=== PATIENT | female | born 1950 | race Caucasian/White ===

== ENCOUNTER 2016-07-07 08:15 | Outpatient (CLI) | payer OTHER | END 2016-07-07 08:16 | disposition home or self-care (01) | DX: E03.9 Hypothyroidism, unspecified (principal) ==

== ENCOUNTER 2016-11-06 11:08 | Outpatient (CLI) | payer OTHER ==
[2016-11-06 13:32] LABS: THYROID STIMULATING HORMONE 1.1 uIU/mL (0.34-5.60)
== END 2016-11-06 11:09 | disposition home or self-care (01) ==
LOC: LAB 11:08
PROVIDERS: ATTEND Nurse Practitioner Family
DX: E03.2 Hypothyroidism due to medicaments and other exogenous substances (principal); R53.83 Other fatigue; E55.9 Vitamin D deficiency, unspecified
CPT/HCPCS: 36415; 82306; 84436; 84439; 84443; 84481; 86376; 86800

== ENCOUNTER 2016-11-29 11:15 | Outpatient (CLI) | payer OTHER ==
--- NOTE | 2016-11-29 15:57 | Ultrasound Report ---
EXAM: THYROID ULTRASOUND EXAM DATE: 11/29/2016 12:18 PM. CLINICAL HISTORY: INTERMITTENT PRESSURE IN THROAT AND SORE THROAT. COMPARISON: None. TECHNIQUE: Real time sonographic imaging of the thyroid was performed by the switchboard and control room operator. Multiple re presentative static images were saved for review. FINDINGS: THYROID GLAND: Right Lobe: 4.6 x 1.3 x 1.0 cm, volume 3 cc. Normal background echotexture. Right Lobe Nodules: None. Left Lobe: 4.3 x 1.4 x 1.1 cm, volume 3 cc. Normal background echotexture. Left Lobe Nodules: None. Isthmus: 0.2 cm AP. Isthmic Nodules: None. LYMPH NODES: No adenopathy demonstrated in the central or lateral compartment. OTHER: None. IMPRESSION: Normal thyroid ultrasound. Management recommendations are based on 2015 [place] [employer] Management Guidelines for A dult Patients with Thyroid Nodules and Differentiated Thyroid Cancer. [facility] Referring Provider Line: [phone] SITE ID: [id number]
== END 2016-11-29 11:16 | disposition home or self-care (01) ==
LOC: DI 11:15
PROVIDERS: ATTEND Nurse Practitioner Family
DX: R09.89 Other specified symptoms and signs involving the circulatory and respiratory systems (principal); R07.0 Pain in throat
CPT/HCPCS: 76536

== ENCOUNTER 2017-07-17 09:10 | Outpatient (CLI) | payer MEDICARE, OTHER ==
[2017-07-17 13:25] LABS: BASOPHILS # (AUTO) 0.1 10^3/uL (0.0-0.1); EOSINOPHILS # (AUTO) 0.2 10^3/uL (0.0-0.7); EOSINOPHILS % (AUTO) 2.9 %; HGB - HEMOGLOBIN 13.7 g/dL (12.0-16.0); LYMPHOCYTES # (AUTO) 2.1 10^3/uL (1.5-3.5); MEAN CORPUSCULAR HEMOGLOBIN 30.9 pg (27.0-31.0); MEAN CORPUSCULAR HGB CONC 33.2 g/dL (32.0-36.0); MEAN PLATELET VOLUME 9.1 fL (7.9-10.8); MONOCYTES # (AUTO) 0.4 10^3/uL (0.0-1.0); MONOCYTES % (AUTO) 7.8 %; NEUTROPHILS % (AUTO) 52.3 %; PLT - PLATELET COUNT 254 10^3/uL (130-450); RED BLOOD COUNT 4.44 10^6/uL (4.20-5.40); RED CELL DISTRIBUTION WIDTH 13.7 % (12.0-15.0); WHITE BLOOD COUNT 5.8 x10^3/uL (4.8-10.8)
[2017-07-17 13:48] LABS: ALBUMIN 4.1 g/dL (3.2-5.5); ALBUMIN/GLOBULIN RATIO 1.4 (1.0-2.2); ALKALINE PHOSPHATASE 90 IU/L (42-121); ALT ALANINE AMINOTRANSFERASE 34 IU/L (10-60); AST ASPARTATE AMINOTRANSFERASE 30 IU/L (10-42); BILIRUBIN,TOTAL 0.4 mg/dL (0.2-1.0); BUN - BLOOD UREA NITROGEN 18 mg/dL (6-20); CALCIUM 9.2 mg/dL (8.5-10.3); CARBON DIOXIDE - CO2 27 mmol/L (21-32); CHLORIDE 104 mmol/L (101-111); CHOL/HDL RATIO 3.7 (<4.4); CHOLESTEROL 194 mg/dL; CREATININE 0.6 mg/dL (0.4-1.0); GFR - MDRD 100 (>89); GLUCOSE 85 mg/dL (70-100); HDL CHOLESTEROL 52 mg/dL; LDL CHOLESTEROL,CALCULATED 118 mg/dL; LDL/HDL RATIO 2.3 (<4.4); SODIUM 138 mmol/L (135-145); TOTAL PROTEIN 7.1 g/dL (6.7-8.2); VLDL CHOLESTEROL 24 mg/dL
== END 2017-07-17 09:11 | disposition home or self-care (01) ==
LOC: LAB.R 09:10
PROVIDERS: ATTEND Nurse Practitioner Primary Care
DX: Z13.1 Encounter for screening for diabetes mellitus (principal); E78.5 Hyperlipidemia, unspecified; E03.9 Hypothyroidism, unspecified; Z79.899 Other long term (current) drug therapy
CPT/HCPCS: 80053; 80061; 83721; 84443; 85025

== ENCOUNTER 2017-08-13 13:12 | Outpatient (CLI) | payer MEDICARE, OTHER ==
--- NOTE | 2017-08-18 11:06 | Mammography Report ---
DIGITAL SCREENING MAMMOGRAM: 08/13/2017 CLINICAL INDICATION: A 67-year-old with history of late childbearing for screening. COMPARISON: 09/2015, 09/2014, 08/2013, 08/2012, 08/2011, 08/2010, 08/2009. TECHNIQUE: Routine CC and MLO projections as well as bilateral laterally exaggerated craniocaudal views were obtained of the breasts. FINDINGS: The breasts again demonstrate heterogeneously dense fibroglandular parenchyma bilaterally. Coarse, typically benign calcifications are present. Circumscribed nodule in the right retroareolar breast is stable. No suspicious masses, clustered microcalcifications, or regions of architectural distortion are identified. IMPRESSION: BENIGN FINDINGS. RECOMMENDATION: Routine annual screening unless otherwise clinically indicated. BI-RADS CATEGORY 2 - BENIGN FINDINGS. STANDARD QUALIFYING STATEMENTS: 1. This examination was reviewed with the aid of Computer-Aided Detection (CAD). 2. A negative or benign imaging report should not delay biopsy if clinically suspicious findings are present. Consider surgical consultation if warranted. More than 5% of cancers are not identified by imaging. 3. Dense breasts may obscure an underlying neoplasm. TD: 08/18/2017 10:44
== END 2017-08-13 13:13 | disposition home or self-care (01) ==
LOC: DI 13:12
PROVIDERS: ATTEND Nurse Practitioner Primary Care
DX: Z12.31 Encounter for screening mammogram for malignant neoplasm of breast (principal)
CPT/HCPCS: 77067

== ENCOUNTER 2018-12-03 10:22 | Outpatient (CLI) | payer MEDICARE, OTHER ==
--- NOTE | 2018-12-07 11:57 | DEXA Report ---
Reason: MENOPAUSE,ENCOUNTER FOR SCREENING FOR OSTEOPOROSIS Procedure Date: 12/03/2018 Accession Number: [id number] / [id number] Procedure: DEX - Dexa Spine and/or Hip CPT Code: FULL RESULT: EXAM: Dexa Spine and/or Hip DATE: 12/03/2018 11:22 AM CLINICAL HISTORY: MENOPAUSE,ENCOUNTER FOR SCREENING FOR OSTEOPOROSIS TECHNIQUE: Dual energy x-ray absorptiometry (DXA) was performed on a [employer] System. Regions measured are the AP Spine, femoral neck, and if needed forearm. COMPARISON: 08/18/2011 In accordance with the International Society for Clinical Densitometry (ISCD) guidelines, data from previous exams may be reanalyzed using current recommendations and techniques. This is done to allow a more accurate basis for comparison with the current study. FINDINGS: The data for the lumbar spine is as follows: BMD (g/cm/cm) T-SCORE Z-SCORE REGION L1 1.254 1.0 2.6 L2 1.377 1.5 3.0 L3 1.302 0.9 2.4 L4 1.208 0.1 1.6 TOTAL 1.281 0.8 2.4 NOTE: All evaluable vertebrae are used for classification The data for the hip is as follows: BMD (g/cm/cm) T-SCORE Z-SCORE REGION Neck 0.797 -1.7 -0.2 TOTAL 0.865 -1.1 0.1 NOTE: The femoral neck or total proximal femur, whichever is lowest, is used for classification. IMPRESSION: THE WHO CLASSIFICATION BASED ON THE INTERNATIONAL REFERENCE STANDARD IS OSTEOPENIA. THE FRACTURE RISK IS INCREASED. RECOMMENDATION: Patients with diagnosis of osteoporosis or osteopenia should have regular bone mineral density assessment. For those eligible for Medicare, routine testing is allowed once every 2 years. Testing frequency can be increased for patients who have rapidly progressing disease or for those who are receiving medical therapy to restore bone mass. COMMENT: World Health Organization (WHO) definitions for osteoporosis and osteopenia: NORMAL BMD: T-score at -1.0 or higher, fracture risk is low OSTEOPENIA BMD: T-score between -1.0 and -2.5, fracture risk is increased. OSTEOPOROSIS BMD: T-score at -2.5 or lower, fracture risk is high. National Osteoporosis Foundation recommends: 1. Obtain adequate dietary calcium (at least 1200 mg per day) and vitamin D (400-800 international units per day). 2. Participate, as appropriate, in regular weightbearing and muscle-strengthening exercise. 3. Avoid tobacco use and reduce alcohol and caffeine intake. 4. For more detailed information see the website at www.NOF.org.
== END 2018-12-03 10:23 | disposition home or self-care (01) ==
LOC: DI 10:22
PROVIDERS: ATTEND Family Medicine
DX: Z13.820 Encounter for screening for osteoporosis (principal); M85.88 Other specified disorders of bone density and structure, other site; Z78.0 Asymptomatic menopausal state
CPT/HCPCS: 77080

== ENCOUNTER 2018-12-03 10:26 | Outpatient (CLI) | payer MEDICARE, OTHER ==
--- NOTE | 2018-12-07 14:19 | Mammography Report ---
Reason: SCREENING MAMMO Procedure Date: 12/03/2018 Accession Number: [id number] / [id number] Procedure: ALIS - Screening Mammo w/Ramakrishna CPT Code: FULL RESULT: EXAM: Screening Mammo w/Ramakrishna DATE: 12/03/2018 11:42 AM CLINICAL HISTORY: Routine screening TECHNIQUE: (B) - Bilateral CC and MLO views were obtained. COMPARISON: 08/13/2017, 09/05/2015, 09/11/2014 and 08/16/2013 PARENCHYMAL PATTERN: (D) - The breasts demonstrate heterogeneously dense fibroglandular parenchyma bilaterally. FINDINGS: On the left no significant interval change. There are no suspicious masses, calcifications, or areas of distortion. On the right there is a retroareolar 9:00 nodule which has been present on prior studies but not evaluated. (MLO tomogram 25, CC 24). Suggest further evaluation by ultrasound. Otherwise no dominant mass, architectural distortion or skin thickening on the right. IMPRESSION: Negative examination left breast. Needs additional evaluation right breast by ultrasound. RECOMMENDATION: (ADDUS) - Targeted ultrasound recommended. Right breast BI-RADS CATEGORY: (0) - Incomplete Examination - need additional evaluation. STANDARD QUALIFYING STATEMENTS: 1. This examination was not reviewed with the aid of Computer-Aided Detection (CAD). 2. A negative or benign imaging report should not preclude biopsy if clinically suspicious findings are present. 3. Dense breasts may obscure an underlying neoplasm. 4. This examination was reviewed with the aid of 3D breast imaging (tomosynthesis).
== END 2018-12-03 10:27 | disposition home or self-care (01) ==
LOC: DI 10:26
PROVIDERS: ATTEND Family Medicine
DX: Z12.31 Encounter for screening mammogram for malignant neoplasm of breast (principal); R92.8 Other abnormal and inconclusive findings on diagnostic imaging of breast
CPT/HCPCS: 77063; 77067

== ENCOUNTER 2018-12-14 11:08 | Outpatient (CLI) | payer MEDICARE, OTHER ==
--- NOTE | 2018-12-14 12:12 | Ultrasound Report ---
Reason: ABNORMAL MAMMOGRAM Procedure Date: 12/14/2018 Accession Number: [id number] / [id number] Procedure: US - Breast Unilateral Limited CPT Code: FULL RESULT: EXAM: Breast Ultrasound Unilateral Limited DATE: 12/14/2018 11:58 AM CLINICAL HISTORY: ABNORMAL MAMMOGRAM COMPARISON: Mammogram 12/03/2018, 08/13/2017, 09/05/2015, 09/11/2014 and 08/16/2013 TECHNIQUE: Targeted ultrasound was performed of the right breast in the area of clinical concern at 9 o'clock and immediately posterior to the nipple. Color Doppler was employed as appropriate. FINDINGS: Corresponding to the mammographic abnormality is a 1.1 x 0.8 x 0.9 cm avascular oval well-circumscribed homogeneous hypoechoic nodule with an accentuated back wall and posterior acoustic enhancement. This could represent a complex cyst or an atypical fibroadenoma. IMPRESSION: Probably benign finding right breast. BI-RADS 3 RECOMMENDATION: Six-month follow-up right breast ultrasound. BIRADS CATEGORY 3 probably benign [facility]
== END 2018-12-14 11:09 | disposition home or self-care (01) ==
LOC: DI 11:08
PROVIDERS: ATTEND Family Medicine
DX: N63.10 Unspecified lump in the right breast, unspecified quadrant (principal)
CPT/HCPCS: 76642

== ENCOUNTER 2019-06-13 12:27 | Outpatient (CLI) | payer MEDICARE, OTHER ==
--- NOTE | 2019-06-13 13:24 | Ultrasound Report ---
Reason: ABN MAMMO - 6 MO FU Procedure Date: 06/13/2019 Accession Number: [id number] / [id number] Procedure: US - Breast Unilateral Limited CPT Code: Final Report FULL RESULT: EXAM: Breast Unilateral Limited DATE: 06/13/2019 1:05 PM CLINICAL HISTORY: ABN MAMMO - 6 MO FU COMPARISON: 12/14/2018 and 08/18/2011. TECHNIQUE: Targeted ultrasound was performed of the right breast in the area of clinical concern at 9 o'clock in the retroareolar region. Color Doppler was employed as appropriate. FINDINGS: A stable 0.9 x 0.9 x 0.7 cm hypoechoic well-circumscribed nodule with increased through transmission representing a complex cyst versus fibroadenoma remains probably benign. IMPRESSION: 3 RECOMMENDATION: Recommend diagnostic right mammogram and ultrasound in 6 months at the time of annual left breast screening mammogram. BIRADS CATEGORY 3 [facility]
== END 2019-06-13 12:28 | disposition home or self-care (01) ==
LOC: DI 12:27
PROVIDERS: ATTEND Nurse Practitioner
DX: R92.8 Other abnormal and inconclusive findings on diagnostic imaging of breast (principal)
CPT/HCPCS: 76642

== ENCOUNTER 2019-10-10 14:00 | Outpatient (CLI) | payer MEDICARE, OTHER | END 2019-10-10 23:59 | disposition home or self-care (01) | LOC: LAB 14:00 | PROVIDERS: ATTEND Nurse Practitioner | DX: Z11.9 Encounter for screening for infectious and parasitic diseases, unspecified (principal) | CPT/HCPCS: 81599 ==

== ENCOUNTER 2020-07-02 12:33 | Outpatient (CLI) | payer MEDICARE, OTHER ==
--- NOTE | 2020-07-03 13:28 | Ultrasound Report ---
LIMITED ULTRASOUND OF RIGHT BREAST: 07/02/2020 CLINICAL: Patient returns for short term follow-up of a probably benign mass in the right breast. Comparison is made to exams dated: 07/02/2020 mammogram, 06/13/2019 ultrasound, 12/03/2018 mammogram, 01/2018 mammogram, 09/05/2015 mammogram, and 09/11/2014 mammogram - [facility]. Real-time ultrasound of the right breast 9 o'clock, and retroareolar regions was performed on the are a of interest. There is a 0.9 cm x 0.7 cm x 0.9 cm oval mass with a circumscribed margin in the right breast at 9 o' clock anterior depth. This oval mass is hypoechoic with a well-defined boundary and posterior acoust ic enhancement. The findings are stable compared to the prior ultrasound studies. This correlates wit h mammography findings. Color flow imaging demonstrates that there is no vascularity present. IMPRESSION: BENIGN There is no sonographic evidence of malignancy. The stable 0.9 cm x 0.7 cm x 0.9 cm oval mass in the right breast is stable compared to prior ultraso und studies. Given stability compared to multiple older mammogram exams, the findings are benign. A 1 year screening mammogram is recommended. This exam was interpreted at Station ID: [id number]. Electronically Signed By: Brian Herrera M.D. ddp/:07/02/2020 14:21:54 Ultrasound BI-RADS: 2 Benign BI-RADS CATEGORY: (2) - 2 RECOMMENDATION: (ANNUAL) - Recommend routine annual screening mammography. [id number] 1 year screening LATERALITY: (B)
--- NOTE | 2020-07-03 13:28 | Mammography Report ---
BILATERAL DIGITAL DIAGNOSTIC MAMMOGRAM 3D/2D: 07/02/2020 CLINICAL: Patient returns for a 6 month follow up of the right breast. Comparison is made to exams dated: 12/03/2018 mammogram, 08/13/2017 mammogram, 09/05/2015 mammogram, 09/11 mammogram, and 08/16/2013 mammogram - [facility]. The tissue of both breasts is heterogeneously dense. This may lower the sensitivity of mammography. There is a oval equal density mass with an obscured and circumscribed margin in the right breast at 9 o'clock anterior depth. Finding appears stable compared to the prior studies. No other significant masses, calcifications, or other findings are seen in either breast. IMPRESSION: INCOMPLETE: NEEDS ADDITIONAL IMAGING EVALUATION The stable oval equal density mass in the right breast is indeterminate. An ultrasound is recommende d. Ultrasound will be performed immediately following the current exam. This exam was interpreted at Station ID: [id number]. NOTE: For mammograms, a report in lay terms will be sent to the patient. Approximately 15% of breast malignancies will not be visualized mammographically. In the management of a palpable breast mass, a negative mammogram must not discourage biopsy of a clinically suspicious lesion. Electronically Signed By: Brian Herrera M.D. ddp/:07/02/2020 13:39:57 ACR BI-RADS Category 0: Incomplete 3340F PARENCHYMAL PATTERN: (D) - The breast(s) demonstrate(s) heterogeneously dense fibroglandular alissa goins. BI-RADS CATEGORY: (0) - 0 Ultrasound [id number] Immediate follow-up LATERALITY: (B)
== END 2020-07-02 12:34 | disposition home or self-care (01) ==
LOC: DI 12:33
PROVIDERS: ATTEND Nurse Practitioner Family
DX: N63.15 Unspecified lump in the right breast, overlapping quadrants (principal)

== ENCOUNTER 2020-12-03 16:42 | Outpatient (CLI) | payer MEDICARE, OTHER | END 2020-12-03 16:43 | disposition home or self-care (01) | LOC: COV 16:42 | PROVIDERS: ATTEND Family Medicine | DX: R05 Cough (principal); R06.02 Shortness of breath; M79.10 Myalgia, unspecified site; R53.83 Other fatigue; R68.83 Chills (without fever); R07.0 Pain in throat; R09.81 Nasal congestion; J34.89 Other specified disorders of nose and nasal sinuses; Z20.822 Contact with and (suspected) exposure to COVID-19 ==

== ENCOUNTER 2021-04-17 08:00 | Outpatient (CLI) | payer MEDICARE, OTHER | END 2021-04-17 23:59 | LOC: LAB.S 08:00 | PROVIDERS: ATTEND Registered Nurse | DX: R06.2 Wheezing (principal); J32.9 Chronic sinusitis, unspecified; Z20.822 Contact with and (suspected) exposure to COVID-19 ==

== ENCOUNTER 2021-08-08 07:24 | Outpatient (CLI) | payer MEDICARE, OTHER ==
[2021-08-08 14:38] LABS: BASOPHILS # (AUTO) 0.1 10^3/uL (0.0-0.1); BASOPHILS % (AUTO) 1.3 %; EOSINOPHILS # (AUTO) 0.3 10^3/uL (0.0-0.7); EOSINOPHILS % (AUTO) 3.9 %; HGB - HEMOGLOBIN 13.7 g/dL (12.0-16.0); LYMPHOCYTES # (AUTO) 2.9 10^3/uL (1.5-3.5); LYMPHOCYTES % (AUTO) 41.7 %; MEAN CORPUSCULAR HEMOGLOBIN 30.8 pg (27.0-31.0); MEAN CORPUSCULAR HGB CONC 32.6 g/dL (32.0-36.0); MEAN CORPUSCULAR VOLUME 94.4 fL (81.0-99.0); MEAN PLATELET VOLUME 10.8 fL (7.9-10.8); MONOCYTES # (AUTO) 0.6 10^3/uL (0.0-1.0); MONOCYTES % (AUTO) 8.2 %; NEUTROPHILS # (AUTO) 3.1 10^3/uL (1.5-6.6); NEUTROPHILS % (AUTO) 44.8 %; PLT - PLATELET COUNT 280 10^3/uL (130-450); RED BLOOD COUNT 4.45 10^6/uL (4.20-5.40); RED CELL DISTRIBUTION WIDTH 13.4 % (12.0-15.0); WHITE BLOOD COUNT 6.9 x10^3/uL (4.8-10.8)
[2021-08-08 15:13] LABS: ESTIMATED AVERAGE GLUCOSE 120 mg/dL (70-100); HEMOGLOBIN A1c% 5.8 % (4.27-6.07)
[2021-08-08 15:40] LABS: ALBUMIN 3.9 g/dL (3.2-5.5); ALBUMIN/GLOBULIN RATIO 1.4 (1.0-2.2); ALKALINE PHOSPHATASE 92 IU/L (42-121); ALT ALANINE AMINOTRANSFERASE 27 IU/L (10-60); AST ASPARTATE AMINOTRANSFERASE 31 IU/L (10-42); BILIRUBIN,TOTAL 0.9 mg/dL (0.2-1.0); BUN - BLOOD UREA NITROGEN 17 mg/dL (6-20); CALCIUM 9.6 mg/dL (8.5-10.3); CARBON DIOXIDE - CO2 27 mmol/L (21-32); CHLORIDE 106 mmol/L (101-111); CHOL/HDL RATIO 4.6 (<4.4); CHOLESTEROL 253 mg/dL; CREATININE 0.7 mg/dL (0.4-1.0); GFR - MDRD 83 (>89); GLUCOSE 95 mg/dL (70-100); HDL CHOLESTEROL 55 mg/dL; LDL CHOLESTEROL,CALCULATED 170 mg/dL; LDL/HDL RATIO 3.1 (<4.4); POTASSIUM 3.9 mmol/L (3.5-5.0); SODIUM 141 mmol/L (135-145); TOTAL PROTEIN 6.6 g/dL (6.7-8.2); TRIGLYCERIDES 142 mg/dL; VLDL CHOLESTEROL 28 mg/dL
[2021-08-08 15:53] LABS: THYROID STIMULATING HORMONE 3.86 uIU/mL (0.34-5.60)
== END 2021-08-08 07:25 | disposition home or self-care (01) ==
LOC: LAB.S 07:24
PROVIDERS: ATTEND Nurse Practitioner Family
DX: E88.81 Metabolic syndrome and other insulin resistance (principal); E03.9 Hypothyroidism, unspecified; E78.5 Hyperlipidemia, unspecified
CPT/HCPCS: 36415; 80053; 80061; 83036; 83721; 84443; 85025

== ENCOUNTER 2021-08-20 12:48 | Outpatient (CLI) | payer MEDICARE, OTHER ==
--- NOTE | 2021-08-20 18:20 | DEXA Report ---
PROCEDURE: Dexa Spine and/or Hip INDICATIONS: OSTEOPENIA TECHNIQUE: Dual energy x-ray absorptiometry (DXA) was performed on a [employer] System. Regions measur ed are the AP Spine, femoral neck, and if needed forearm. COMPARISON: DEXA 12/03/2018 FINDINGS: Lumbar Spine: Bone Mineral Density 1.272 g/cm/cm,T score 0.8, unchanged Left Hip: Bone Mineral Density 0.854 g/cm/cm,T score -1.2, compared to -1.1 Left Femoral Neck: Bone Mineral Density 0.774 g/cm/cm, T score -1.5, compared to -1.7 (T score greater or equal to -1.0: NORMAL) (T score from -1.1 to -2.4: OSTEOPENIA) (T score less than or equal to -2.5 to: OSTEOPOROSIS) Impression: Minimal to mild osteopenia in the left hip and femoral neck slightly improved in the femoral neck com pared to prior exam. Patients with diagnosis of osteoporosis or osteopenia should have regular bone mineral density assess ment. For those eligible for Medicare, routine testing is allowed once every 2 years. Testing frequ ency can be increased for patients who have rapidly progressing disease or for those who are receivin g medical therapy to restore bone mass. Reviewed by: Heather Arriaga MD on 08/20/2021 6:18 PM PDT Approved by: Heather Arriaga MD on 08/20/2021 6:18 PM PDT Station ID: [id number]
== END 2021-08-20 12:49 | disposition home or self-care (01) ==
LOC: DI 12:48
PROVIDERS: ATTEND Nurse Practitioner Family
DX: M85.89 Other specified disorders of bone density and structure, multiple sites (principal)

== ENCOUNTER 2021-10-29 11:29 | Outpatient (CLI) | payer MEDICARE, OTHER ==
[2021-10-29 15:21] LABS: THYROID STIMULATING HORMONE 1.24 uIU/mL (0.34-5.60)
[2021-10-29 15:22] LABS: FREE T4 (FREE THYROXINE) 0.86 ng/dL (0.58-1.64)
== END 2021-10-29 11:30 | disposition home or self-care (01) ==
LOC: LAB.S 11:29
PROVIDERS: ATTEND Family Medicine
DX: E03.9 Hypothyroidism, unspecified (principal)
CPT/HCPCS: 36415; 84439; 84443; 84480

== ENCOUNTER 2022-03-14 09:26 | Day surgery (SDC) | payer MEDICARE, OTHER ==
[2022-03-14] MEDS ORDERED: LACTATED RINGERS 1,000 ML IV ONE ×2 (09:55→11:21)
--- NOTE | 2022-03-14 10:37 | ANESTHESIA ---
Pre-Anesthesia VS, & Labs - Diagnosis colon screening - Procedure colonoscopy Vital Signs: Temp Pulse Resp BP Pulse Ox O2 Flow Rate 36.1 C L 51 L 16 122/62 99 03/14/22 09:42 03/14/22 09:42 03/14/22 09:42 03/14/22 09:42 03/14/22 09:42 Height: 5 ft 6 in Weight (kg): 64.5 kg Body Mass Index: 22.9 BMI Classification: Normal - NPO >8 hours - Is Patient ?: No Home Medications and Allergies Home Medications: Ambulatory Orders Thyroid [Alpha Thyroid] 30 mg PO DAILY 03/13/22 Multivitamin [Multiple Vitamins] 1 each PO DAILY 02/16/13 Thyroid [Alpha Thyroid] 30 mg PO DAILY 03/13/22 Allergies/Adverse Reactions: Allergies Allergy/AdvReac Type Severity Reaction Status Date / Time No Known Drug Allergies Allergy Verified 02/15/13 14:44 Anes History & Medical History - Anesthetic History Anesthesia Complications: reports: No previous complications Family history of Anesthesia Complications: Denies Family history of Malignant Hyperthermia: Denies - Medical History Cardiovascular: reports: None Pulmonary: reports: None Gastrointestinal: reports: Colon polyps Urinary: reports: None Neuro: reports: None Musculoskeletal: reports: None Endocrine/Autoimmune: reports: None Blood Disorders: reports: None Skin: reports: None Smoking Status: Never smoker Psychosocial: reports: No issues indicated - Surgical History General: reports: Colonoscopy Eyes Ears Nose Throat (EENT): reports: Tonsil/Adenoidectomy Exam General: Alert, Oriented x3, Cooperative, No acute distress Dental: WNL Mouth Openin Fingerbreadth Neck Mobility: Normal Mallampati classification: I Thyromental Distance: 4-6 cm Respiratory: Lungs clear Cardiovascular: Regular rate Mental/Cognitive Status: Alert/Oriented X3, Normal for patient Cognitive Status: Within normal limits Plan Anesthesia Type: General Consent for Procedure(s) Verified and Reviewed: Yes Code Status: Attempt Resuscitation ASA classification: 2-Mild systemic disease Is this case an emergency?: No
[2022-03-14] MEDS ORDERED: PROPOFOL 200 MG/20 ML VIAL IVP ONE (10:44)
[2022-03-14] MEDS ORDERED: PROPOFOL 500 MG/50 ML 500 MG/50 ML VIAL ONE (10:44)
[2022-03-14] MEDS ORDERED: ePHEDrine 50 MG/ML VIAL IVP ONE (10:55)
[2022-03-14 11:35] VITALS: BP 112/68
--- NOTE | 2022-03-14 14:09 | ANESTHESIA POST OP EVALUATION ---
Anesthesia Post Eval - Post Anesthesia Eval Vitals: Last Vital Signs Temp 36.7 C 03/14/22 11:18 Pulse 68 03/14/22 11:34 Resp 13 03/14/22 11:34 BP 112/68 03/14/22 11:34 Pulse Ox 99 03/14/22 11:34 O2 Flow Rate CV Function Including HR & BP: Stable Pain Control: Satisfactory Nausea & Vomiting: Negative Mental Status: Baseline Respiratory Status: Airway Patent Hydration Status: Satisfactory Anesthesia Complications: None
== END 2022-03-14 09:27 | disposition home or self-care (01) ==
LOC: SDS 09:26
PROVIDERS: ATTEND Surgery
DX: Z12.11 Encounter for screening for malignant neoplasm of colon (principal)
CPT/HCPCS: G0121; J7120

== ENCOUNTER 2022-09-18 07:27 | Outpatient (CLI) | payer MEDICARE, OTHER ==
[2022-09-18 14:20] LABS: BASOPHILS # (AUTO) 0.1 10^3/uL (0.0-0.1); EOSINOPHILS # (AUTO) 0.2 10^3/uL (0.0-0.7); EOSINOPHILS % (AUTO) 2.7 %; HCT - HEMATOCRIT 35.7 % (37.0-47.0); HGB - HEMOGLOBIN 11.4 g/dL (12.0-16.0); LYMPHOCYTES # (AUTO) 2.4 10^3/uL (1.5-3.5); LYMPHOCYTES % (AUTO) 36.1 %; MEAN CORPUSCULAR HEMOGLOBIN 30.6 pg (27.0-31.0); MEAN CORPUSCULAR HGB CONC 31.9 g/dL (32.0-36.0); MEAN CORPUSCULAR VOLUME 95.7 fL (81.0-99.0); MEAN PLATELET VOLUME 10.9 fL (7.9-10.8); MONOCYTES # (AUTO) 0.5 10^3/uL (0.0-1.0); NEUTROPHILS # (AUTO) 3.5 10^3/uL (1.5-6.6); NEUTROPHILS % (AUTO) 51.9 %; PLT - PLATELET COUNT 277 10^3/uL (130-450); RED BLOOD COUNT 3.73 10^6/uL (4.20-5.40); WHITE BLOOD COUNT 6.7 x10^3/uL (4.8-10.8)
[2022-09-18 14:59] LABS: ALBUMIN 3.5 g/dL (3.2-5.5); ALBUMIN/GLOBULIN RATIO 1.1 (1.0-2.2); ALKALINE PHOSPHATASE 97 IU/L (42-121); ALT ALANINE AMINOTRANSFERASE 27 IU/L (10-60); AST ASPARTATE AMINOTRANSFERASE 28 IU/L (10-42); BILIRUBIN,TOTAL 0.6 mg/dL (0.2-1.0); BUN - BLOOD UREA NITROGEN 14 mg/dL (6-20); CALCIUM 8.8 mg/dL (8.5-10.3); CARBON DIOXIDE - CO2 27 mmol/L (21-32); CHLORIDE 111 mmol/L (101-111); CHOL/HDL RATIO 4.2 (<4.4); CHOLESTEROL 230 mg/dL; CREATININE 0.7 mg/dL (0.4-1.0); GFR - MDRD 83 (>89); GLUCOSE 99 mg/dL (70-100); HDL CHOLESTEROL 55 mg/dL; LDL CHOLESTEROL,CALCULATED 146 mg/dL; LDL/HDL RATIO 2.7 (<4.4); SODIUM 142 mmol/L (135-145); TOTAL PROTEIN 6.6 g/dL (6.7-8.2); TRIGLYCERIDES 143 mg/dL; VLDL CHOLESTEROL 29 mg/dL
[2022-09-18 15:01] LABS: THYROID STIMULATING HORMONE 0.99 uIU/mL (0.34-5.60)
== END 2022-09-18 07:28 | disposition home or self-care (01) ==
LOC: LAB.S 07:27
PROVIDERS: ATTEND Internal Medicine
DX: E78.5 Hyperlipidemia, unspecified (principal); E88.81 Metabolic syndrome and other insulin resistance; R92.8 Other abnormal and inconclusive findings on diagnostic imaging of breast; E03.9 Hypothyroidism, unspecified; D12.6 Benign neoplasm of colon, unspecified
CPT/HCPCS: 36415; 80053; 80061; 83525; 83721; 84443; 85025

== ENCOUNTER 2022-10-06 12:58 | Outpatient (CLI) | payer MEDICARE, OTHER ==
--- NOTE | 2022-10-08 10:12 | Mammography Report ---
BILATERAL DIGITAL SCREENING MAMMOGRAM 3D/2D WITH EXAGGERATED CC: 10/06/2022 CLINICAL: Routine screening. Family history of breast cancer. Comparison is made to exams dated: 09/10/2021 mammogram, 07/02/2020 mammogram, 12/03/2018 mammogram, and 08/13/2017 mammogram - [facility]. Both breasts are heterogeneously dense, which may obscure small masses (category c / 51-75% glandular tissue). There are benign calcifications in both breasts. No significant masses, calcifications, or other findings are seen in either breast. There has been no significant interval change. IMPRESSION: BENIGN There is no mammographic evidence of malignancy. A 1 year screening mammogram is recommended. Based on the Tyrer Cuzick model (a risk assessment model) the patients lifetime risk is 12.6% and he r 10 year risk is 8.1%. According to the ACR, ACS, and NCCN guidelines, an annual breast MRI exam codi ng with mammogram is recommended if the patients lifetime risk is 20% or greater. This exam was interpreted at Station ID: [id number]. NOTE: For mammograms, a report in lay terms will be sent to the patient. Approximately 15% of breast malignancies will not be visualized mammographically. In the management of a palpable breast mass, a negative mammogram must not discourage biopsy of a clinically suspicious lesion. Electronically Signed By: Lennox michaels/kyleigh:10/06/2022 19:10:29 letter sent: No_Letter ACR BI-RADS Category 2: Benign Finding(s) 3342F PARENCHYMAL PATTERN: (D) - The breast(s) demonstrate(s) heterogeneously dense fibroglandular alissa goins. BI-RADS CATEGORY: (2) - 2 Mammogram [id number] 1 year screening LATERALITY: (B)
== END 2022-10-06 12:59 | disposition home or self-care (01) ==
LOC: DI.S 12:58
DX: Z12.31 Encounter for screening mammogram for malignant neoplasm of breast (principal); Z80.3 Family history of malignant neoplasm of breast

== ENCOUNTER 2023-07-15 08:00 | Outpatient (CLI) | payer MEDICARE, OTHER | END 2023-07-15 23:59 | disposition home or self-care (01) | LOC: LAB.S 08:00 | PROVIDERS: ATTEND Emergency Medicine | DX: J02.9 Acute pharyngitis, unspecified (principal) | CPT/HCPCS: 87070 ==

== ENCOUNTER 2023-10-14 08:00 | Outpatient (CLI) | payer MEDICARE, OTHER ==
[2023-10-14 14:59] LABS: BASOPHILS # (AUTO) 0.1 10^3/uL (0.0-0.1); BASOPHILS % (AUTO) 1.3 %; EOSINOPHILS # (AUTO) 0.2 10^3/uL (0.0-0.7); EOSINOPHILS % (AUTO) 3.4 %; HCT - HEMATOCRIT 40.1 % (37.0-47.0); HGB - HEMOGLOBIN 12.4 g/dL (12.0-16.0); LYMPHOCYTES # (AUTO) 2.3 10^3/uL (1.5-3.5); LYMPHOCYTES % (AUTO) 42.9 %; MEAN CORPUSCULAR HEMOGLOBIN 29.6 pg (27.0-31.0); MEAN CORPUSCULAR HGB CONC 30.9 g/dL (32.0-36.0); MEAN CORPUSCULAR VOLUME 95.7 fL (81.0-99.0); MEAN PLATELET VOLUME 10.9 fL (7.9-10.8); MONOCYTES # (AUTO) 0.5 10^3/uL (0.0-1.0); MONOCYTES % (AUTO) 8.8 %; NEUTROPHILS # (AUTO) 2.3 10^3/uL (1.5-6.6); NEUTROPHILS % (AUTO) 43.4 %; PLT - PLATELET COUNT 277 10^3/uL (130-450); RED BLOOD COUNT 4.19 10^6/uL (4.20-5.40); RED CELL DISTRIBUTION WIDTH 15.5 % (12.0-15.0); WHITE BLOOD COUNT 5.3 x10^3/uL (4.8-10.8)
[2023-10-14 15:29] LABS: ALBUMIN 4.1 g/dL (3.2-5.5); ALBUMIN/GLOBULIN RATIO 1.5 (1.0-2.2); ALKALINE PHOSPHATASE 92 IU/L (42-121); ALT ALANINE AMINOTRANSFERASE 18 IU/L (10-60); AST ASPARTATE AMINOTRANSFERASE 23 IU/L (10-42); BILIRUBIN,TOTAL 0.6 mg/dL (0.2-1.0); BUN - BLOOD UREA NITROGEN 17 mg/dL (6-20); CALCIUM 9.4 mg/dL (8.5-10.3); CARBON DIOXIDE - CO2 29 mmol/L (21-32); CHLORIDE 107 mmol/L (101-111); CHOL/HDL RATIO 3.4 (<4.4); CHOLESTEROL 234 mg/dL; CREATININE 0.7 mg/dL (0.6-1.3); GFR - MDRD 82 (>89); GLUCOSE 93 mg/dL (74-104); HDL CHOLESTEROL 68 mg/dL; LDL CHOLESTEROL,CALCULATED 147 mg/dL; LDL/HDL RATIO 2.2 (<4.4); SODIUM 139 mmol/L (135-145); TOTAL PROTEIN 6.9 g/dL (6.4-8.9); TRIGLYCERIDES 95 mg/dL; VLDL CHOLESTEROL 19 mg/dL
[2023-10-14 15:55] LABS: THYROID STIMULATING HORMONE 1.27 uIU/mL (0.34-5.60)
[2023-10-14 22:51] LABS: ESTIMATED AVERAGE GLUCOSE 103 mg/dL (70-100); HEMOGLOBIN A1c% 5.2 % (4.27-6.07)
== END 2023-10-14 08:01 | disposition home or self-care (01) ==
LOC: LAB.S 08:00
PROVIDERS: ATTEND Nurse Practitioner Acute Care
DX: E03.9 Hypothyroidism, unspecified (principal); Z13.228 Encounter for screening for other metabolic disorders; Z13.220 Encounter for screening for lipoid disorders; Z13.1 Encounter for screening for diabetes mellitus; Z13.29 Encounter for screening for other suspected endocrine disorder; Z13.0 Encounter for screening for diseases of the blood and blood-forming organs and certain disorders involving the immune mechanism
CPT/HCPCS: 36415; 80053; 80061; 83036; 83721; 84443; 85025

== ENCOUNTER 2023-11-11 13:02 | Outpatient (CLI) | payer MEDICARE, OTHER ==
--- NOTE | 2023-11-12 07:55 | Mammography Report ---
BILATERAL DIGITAL SCREENING MAMMOGRAM 3D/2D: 11/11/2023 CLINICAL: Routine screening. Comparison is made to exams dated: 10/06/2022 mammogram, 09/10/2021 mammogram, and 07/02/2020 mammogram - [facility]. Both breasts are heterogeneously dense, which may obscure small masses (category c / 51-75% glandular tissue). There are benign calcifications in both breasts. No significant masses, calcifications, or other findings are seen in either breast. There has been no significant interval change. IMPRESSION: BENIGN There is no mammographic evidence of malignancy. A 1 year screening mammogram is recommended. Based on the Tyrer Cuzick model (a risk assessment model) the patient's lifetime risk is 11.9% and he r 10 year risk is 8.3%. According to the ACR, ACS, and NCCN guidelines, an annual breast MRI exam codi ng with mammogram is recommended if the patient's lifetime risk is 20% or greater. This exam was interpreted at Station ID: [id number]. NOTE: For mammograms, a report in lay terms will be sent to the patient. Approximately 15% of breast malignancies will not be visualized mammographically. In the management of a palpable breast mass, a negative mammogram must not discourage biopsy of a clinically suspicious lesion. Electronically Signed By: Allen love/kyleigh:11/11/2023 14:50:27 letter sent: No_Letter ACR BI-RADS Category 2: Benign Finding(s) 3342F PARENCHYMAL PATTERN: (D) - The breast(s) demonstrate(s) heterogeneously dense fibroglandular alissa goins. BI-RADS CATEGORY: (2) - 2 RECOMMENDATION: (ANNUAL) - Recommend routine annual screening mammography. [id number] 1 year screening LATERALITY: (B)
== END 2023-11-11 13:03 | disposition home or self-care (01) ==
LOC: DI 13:02
PROVIDERS: ATTEND Nurse Practitioner Acute Care
DX: Z12.31 Encounter for screening mammogram for malignant neoplasm of breast (principal); R92.333 Mammographic heterogeneous density, bilateral breasts; R92.1 Mammographic calcification found on diagnostic imaging of breast

== ENCOUNTER 2023-11-11 13:34 | Outpatient (CLI) | payer MEDICARE, OTHER ==
--- NOTE | 2023-11-11 16:00 | DEXA Report ---
PROCEDURE: Dexa Spine and/or Hip INDICATIONS: POST MENOPAUSAL TECHNIQUE: Dual energy x-ray absorptiometry (DXA) was performed on a [employer] System. Regions measur ed are the AP Spine, femoral neck, and if needed forearm. COMPARISON: 08/20/2021 FINDINGS: Lumbar Spine: L1 excluded due to increased density. Bone Mineral Density: 1.316 g/cm/cm,T score: 1. Since the most recent prior study, there has been a statistically significant decrease in bone mineral density by -2.4 percent. Left Femoral Neck: Bone Mineral Density: 0.8 g/cm/cm, T score: -1.7. Left Hip: Bone Mineral Density: 0.861 g/cm/cm,T score: -1.2. There has been no statistically significant change in bone mineral density since the prior study. FRAX risk factors: Frontal hip fracture 10 year risk of major osteoporotic fracture: 70% major osteoporotic fracture = hip, clinical vertebral, proximal humerus, distal forearm 10 year risk of hip fracture: 5% (T score greater or equal to -1.0: NORMAL) (T score from -1.1 to -2.4: OSTEOPENIA) (T score less than or equal to -2.5 to: OSTEOPOROSIS) Impression: By WHO criteria, this patient has low bone density (osteopenia). Interval statistical decrease in bone mineral density of the lumbar spine. No statistical interval ch gabi in bone mineral density of the hip. Patients with diagnosis of osteoporosis or osteopenia should have regular bone mineral density assess ment. For those eligible for Medicare, routine testing is allowed once every 2 years. Testing frequ ency can be increased for patients who have rapidly progressing disease or for those who are receivin g medical therapy to restore bone mass. Reviewed by: Bill Fernandez MD on 11/11/2023 3:58 PM PDT Approved by: Bill Fernandez MD on 11/11/2023 3:58 PM PDT Station ID: [id number]
== END 2023-11-11 13:35 | disposition home or self-care (01) ==
LOC: DI 13:34
PROVIDERS: ATTEND Nurse Practitioner Acute Care
DX: M85.89 Other specified disorders of bone density and structure, multiple sites (principal); Z78.0 Asymptomatic menopausal state